=== PATIENT | male | born 1990 | race Caucasian/White ===

== ENCOUNTER 2021-02-10 09:25 | Emergency (ER) | payer OTHER ==
[~2021-02-10] VITALS: Ht 157.5 cm; Wt 121.2 kg
[~2021-02-10 09:25] MED LIST: ATOM10CA4 PO; ATOM40CA9 PO; FLUO10CA24 PO; LITH300C3 PO; OLAN5TAB52 PO
[2021-02-10 09:35] VITALS: BP 146/91
== END 2021-02-10 10:30 | disposition home or self-care (01) ==
LOC: EDUNIT# 09:25 → EMS 09:32
DX: J40 Bronchitis, not specified as acute or chronic (principal); Z20.822 Contact with and (suspected) exposure to COVID-19
CPT/HCPCS: 71045; 99284; U0003